=== PATIENT | female | born 1955 | race Two or more races ===

== ENCOUNTER 2021-01-05 22:44 | Emergency (ER) | payer MEDICARE, OTHER ==
[~2021-01-05] VITALS: Ht 170.2 cm; Wt 78.0 kg
[2021-01-05] MEDS ORDERED: IPRATROPIUM BROMIDE (0.02%) 0.5MG/2.5ML NEB HHN STA (22:48)
[2021-01-05] MEDS ORDERED: METHYLPREDNISOLONE SOD SUCC 125 MG/2 ML VIAL IV STA (22:48)
[2021-01-05] MEDS ORDERED: MAGNESIUM 2 G PREMIX 50 ML IV ONE (23:00)
[2021-01-05] MEDS ORDERED: SODIUM CHLORIDE 0.9% 1,000 ML IV ONE (23:00)
[2021-01-05] MEDS: ALBUTEROL (0.083%) 2.5MG/3ML NEB HHN SCH ×3 (23:06→23:49)
[2021-01-05 23:22] LABS: HEMOGLOBIN. 11.7 g/dL (12.0-16.0); MEAN CORPUSCULAR HEMOGLOBIN 29.8 pg (28.0-32.0); MEAN CORPUSCULAR VOLUME 88.9 fL (81.0-99.0); MEAN PLATELET VOLUME 9.4 fl (7.4-10.4); PLATELET 218 x1000/uL (130-400); RED BLOOD CELL COUNT 3.94 mill/uL (4.2-5.4); RED CELL DISTRIBUTION WIDTH 15.6 % (11.6-14.6)
[2021-01-05 23:31] LABS: CHLORIDE 107 mEq/L (98-107)
[2021-01-05 23:44] LABS: BG BASE EXCESS 2.1 mmol/L (-2.0-2.0); BG CARBOXYHEMOGLOBIN 0.3 % (0.5-1.5); BG DEOXYHEMOGLOBIN 0.6 % (0.0-5.0); BG FRACTION INSPIRED OXYGEN 100; BG HCO3 ACT 27.6 mmol/L (22.0-26.0); BG METHEMOGLOBIN 0.3 % (0.0-1.5); BG OXYGEN SATURATION 99.4 % (92.0-98.5); BG OXYHEMOGLOBIN 98.8 % (94.0-97.0); BG PCO2 46.7 mmHg (35.0-45.0); BG PH 7.389 (7.350-7.450); BG PO2 361.8 mmHg (75.0-100.0); BG SAMPLE SITE RIGHT RADIAL; BG TOTAL HEMOGLOBIN 11.1 g/dL (12.0-18.0); BG VENT MODE MASK - BIPAP
[2021-01-06 00:28] LABS: PLATELET ESTIMATE NORMAL
[2021-01-06] MEDS ORDERED: IOHEXOL-350 100 ML BOTTLE ONE (02:28)
[2021-01-06 06:40] VITALS: BP 103/43
== END 2021-01-06 07:00 | disposition short-term general hospital (02) ==
LOC: ER 22:44 → CANBEDREQ 01-06 10:18
DX: T88.6XXA Anaphylactic reaction due to adverse effect of correct drug or medicament properly administered, initial encounter (principal); J96.00 Acute respiratory failure, unspecified whether with hypoxia or hypercapnia; T39.315A Adverse effect of propionic acid derivatives, initial encounter; Y92.018 Other place in single-family (private) house as the place of occurrence of the external cause; D64.9 Anemia, unspecified; E87.6 Hypokalemia; J45.909 Unspecified asthma, uncomplicated; J90 Pleural effusion, not elsewhere classified; R59.1 Generalized enlarged lymph nodes
CPT/HCPCS: 36415; 36600; 71045; 71275; 80053; 82375; 82805; 83605; 83880; 84484; 85025; 85379; 93005; 94640; 94660; 96365; 96375; 99285; J2930; J3475; J7030; Q9967